=== PATIENT | male | born 1965 | race Caucasian/White ===

== ENCOUNTER → 2025-01-27 09:47 | Outpatient (CLI) | payer OTHER, SELFPAY ==
[2025-01-27 10:42] LABS: Add Manual Diff / Slide Review NO; Hematocrit 41.6 % (41-53); Hemoglobin 14.7 g/dL (13.5-17.5); Lymphocytes Absolute Auto 1700 /uL (1100-4500); Mean Corpuscular HGB Conc 35.4 % (30-36); Mean Corpuscular Hemoglobin 32.3 PG (26-34); Mean Corpuscular Volume 91.3 fL (80-100); Platelet Count 264 X10^3/uL (150-400)
[2025-01-27 10:58] LABS: Hemoglobin A1C% w Est Avg Glu 5.9 % (4.0-6.0)
[2025-01-27 11:09] LABS: Alanine Aminotransferase 28 IU/L (<50); Albumin 4.5 g/dL (3.5-5.0); Albumin Globulin Ratio 1.7 (1.0-2.8); Alkaline Phosphatase 61 U/L (38-126); Blood Urea Nitrogen 17 mg/dL (9-20); Calcium 9.1 mg/dL (8.4-10.2); Carbon Dioxide 27 mmol/L (22-32); Chloride 103 mmol/L (98-107); Cholesterol 155 mg/dL (140-199); Estimated Glomerular Filt Rate > 60 mL/min (>60); Globulin 2.6 g/dL (1.7-4.1); Glucose 98 mg/dL (70-99); HDL Cholesterol 37 mg/dL (40-60); HEMOLYSIS < 15 (0-50); Potassium 4.5 mmol/L (3.4-5.1); Sodium 139 mmol/L (137-145); Total Protein 7.1 g/dL (6.3-8.2); Triglycerides 128 mg/dL (35-150)
== END ==
PROVIDERS: PCP Family Medicine; Referring Provider Family Medicine; Visit Provider Family Medicine
DX: Z80.8 Family history of malignant neoplasm of other organs or systems (principal); Z82.49 Family history of ischemic heart disease and other diseases of the circulatory system; R73.03 Prediabetes; E78.00 Pure hypercholesterolemia, unspecified
CPT/HCPCS: 36415; 80053; 80061; 83036; 85025

== ENCOUNTER 2025-04-05 09:27 | Day surgery (SDC) | payer OTHER, SELFPAY ==
[2025-03-23 08:51] VITALS: BMI 25.5
[2025-04-05] MEDS: LACTATED RINGERS 1,000 ML 42 ML IV (09:55)
[2025-04-05 10:01] VITALS: BP 123/78; PULSE 58; RESP 16; TEMP 36.2; O2SAT 98
--- NOTE | 2025-04-05 10:10 | P.HP_ITS ---
History of Present Illness History of Present Illness Date Patient Seen: 04/05/25 Date of Onset of Symptoms: 04/05/25 Chief complaint: SDC Narrative: History of colon polyps need for follow-up colonoscopy [facility] Medical History (Updated 03/23/25 @ 08:51 by Tatyana Sneed, RN) Mixed hyperlipidemia Surgical History (Updated 03/23/25 @ 08:51 by Tatyana Sneed, RN) Hx of vasectomy S/P carpal tunnel release (2023) Anesthesia S/P ACL repair (~1996) Family History (Updated 12/22/24 @ 20:22 by Charline Bowen) Father History of heart disease Mother Diabetes mellitus Hyperlipidemia Hypertension Brother Hypertension Hyperlipidemia Brother Hypertension Hyperlipidemia Grandfather History of heart disease Grandmother History of heart disease Grandfather Alcohol abuse Grandmother Cancer Social History Smoking Status: Never smoker Meds Home Medications and Allergies Home Medications ?Medication ?Instructions ?Recorded ?Confirmed ?Type sodium,potassium,mag sulfates 17.5 See Rx Instructions PO .COMPLEX 03/08/25 Rx gram-3.13 gram-1.6 gram oral soln #354 mL (Suprep Bowel Prep Kit) Allergies Allergy/AdvReac Type Severity Reaction Status Date / Time No Known Drug Allergies Allergy Verified 04/05/25 09:59 Exam Vital Signs (past 8 hours): - 04/05/25 10:01 Temperature 97.2 F L Pulse Rate 58 L Respiratory Rate 16 Blood Pressure 123/78 Pulse Oximetry 98 Oxygen Delivery Method Room Air Oxygen Delivery Method Room Air Narrative Exam Narrative: Oropharynx free of lesions Chest clear to auscultation percussion Cardiac exam reveals no S3 or murmur Assessment & Plan Assessment & Plan narrative: History of adenomatous colon polyps need for follow-up colonoscopy. Also family history of colon polyps in brothers. Risks, benefits, alternatives have been explained. Time-Based Coding :: [TOTAL MINUTES] spent with patient and on the chart (including review of chart, obtaining history, exam, reviewing outside data, placing orders, documenting exam and treatment plan, and counseling patient) on [DATE]. [employer] Document charge(s): No
--- NOTE | 2025-04-05 10:12 | PM.OP.COLON ---
Operative Date/Time/Diagnoses Date of procedure: 04/05/25 Time of procedure: 11:12 Pre-op diagnosis: See indication and findings Post-op diagnosis: same Procedure & Clinicians Study performed: Colonoscopy Same procedure(s) as scheduled: Yes Indications: History of colon polyps and family history of colon polyps Surgeon: Glen Muhammad Anesthesia Type: MAC +/- Procedure Notes Procedure in detail: After informed consent was obtained the patient was placed in left lateral decubitus position. The video colonoscope was introduced the rectum slowly advanced cecum. Preparation was good. On slow withdrawal mucosa was carefully examined. The scope was removed. The patient tolerated procedure well. Blood loss none Complications none Sedation mac Findings 1. Normal colonoscopy with barely good prep. Patient should have follow-up colonoscopy in 3-5 years. Probably should have an more extensive prep at that time. Estimated Blood Loss: 0 Complications: none
[2025-04-05 11:14] VITALS: BP 101/66; PULSE 55; RESP 18; TEMP 36.1; O2SAT 95
[2025-04-05 11:20] VITALS: BP 113/59; PULSE 56; RESP 17; O2SAT 95
[2025-04-05 11:24] VITALS: BP 103/69; PULSE 54; RESP 16; O2SAT 95
== END 2025-04-05 11:53 | disposition home or self-care (01) ==
PROVIDERS: PCP Family Medicine; Referring Provider Internal Medicine Gastroenterology; Visit Provider Internal Medicine Gastroenterology
PROC: 0DJD8ZZ Inspection of Lower Intestinal Tract, Via Natural or Artificial Opening Endoscopic (ICD-10-PCS; CPT 45378; principal; 2025-04-05 10:30)
DX: Z12.11 Encounter for screening for malignant neoplasm of colon (principal); Z83.719 Family history of colon polyps, unspecified; Z86.0101 Personal history of adenomatous and serrated colon polyps
CPT/HCPCS: 45378; J2704; J7120